=== PATIENT | male | born 1940 | race Caucasian/White ===

== ENCOUNTER 2019-08-28 19:50 | Inpatient (IN) | payer OTHER ==
[~2019-08-28] VITALS: Ht 172.7 cm; Wt 73.9 kg
[2019-08-28] MEDS ORDERED: CHILDREN'S ASPI81 MG PO (20:00)
[2019-08-28] MEDS ORDERED: FORTAMET500 MG PO (20:00)
[2019-08-28] MEDS ORDERED: LOSARTAN-HCTZ1 EAC1 PO (20:00)
[2019-08-28] MEDS ORDERED: TOPROL XL50 M1 PO (20:01)
[2019-08-28] MEDS ORDERED: ATORVASTATIN CA40 MG PO (20:01)
[2019-08-28] MEDS ORDERED: AMILORIDE HCL5 MG PO (20:01)
--- NOTE | 2019-08-28 20:05 | NUR ---
PTE MASCULINO ALERTA Y ORIENTADO EN L[place] HERRERA ESFERAS REFIERE SANGRADO RECTAL ABUNDANTE DESDE EL MIERCOLES.
--- NOTE | 2019-08-28 20:41 | NUR ---
SE ORIENTA AL PACIENTE SOBRE EL TX. SE EXTRAEN MUESTRAS DE ALYCIA BAJO MEDIDAS ASEPTICAS, SE ROTULAN Y ENVIAN AL LABORATORIO. SE CANALIZA Y COLOCA IV. SE ENTREGA FRASCO PARA OCCULT BLOOD ROTULADO Y SE ORIENTA COLECTAR LA MUESTRA.
== END 2019-09-03 11:06 | disposition home or self-care (01) | DRG 379 ==
LOC: ER 19:50 → SURG 21:47 → SEC-K 21:47 → SURG 22:13
PROVIDERS: ADMIT Internal Medicine; ATTEND Internal Medicine
PROC: BW21ZZZ Computerized Tomography (CT Scan) of Abdomen and Pelvis (ICD-10-PCS; principal; 2019-08-29)
PROC: 30233N1 Transfusion of Nonautologous Red Blood Cells into Peripheral Vein, Percutaneous Approach (ICD-10-PCS; 2019-08-30)
PROC: CD171ZZ Planar Nuclear Medicine Imaging of Gastrointestinal Tract using Technetium 99m (Tc-99m) (ICD-10-PCS; 2019-08-31)
PROC: BG44ZZZ Ultrasonography of Thyroid Gland (ICD-10-PCS; 2019-08-31)
PROC: 0T9B70Z Drainage of Bladder with Drainage Device, Via Natural or Artificial Opening (ICD-10-PCS; 2019-08-31)
PROC: 0DJ08ZZ Inspection of Upper Intestinal Tract, Via Natural or Artificial Opening Endoscopic (ICD-10-PCS; 2019-08-31)
PROC: BW21YZZ Computerized Tomography (CT Scan) of Abdomen and Pelvis using Other Contrast (ICD-10-PCS; 2019-09-02)
PROC: 0DJD8ZZ Inspection of Lower Intestinal Tract, Via Natural or Artificial Opening Endoscopic (ICD-10-PCS; 2019-09-02)
DX: K57.33 Diverticulitis of large intestine without perforation or abscess with bleeding (principal); E11.8 Type 2 diabetes mellitus with unspecified complications; E78.5 Hyperlipidemia, unspecified; I11.9 Hypertensive heart disease without heart failure; I25.10 Atherosclerotic heart disease of native coronary artery without angina pectoris; N40.0 Benign prostatic hyperplasia without lower urinary tract symptoms; N32.0 Bladder-neck obstruction; K29.60 Other gastritis without bleeding; K26.9 Duodenal ulcer, unspecified as acute or chronic, without hemorrhage or perforation; D50.0 Iron deficiency anemia secondary to blood loss (chronic); E04.1 Nontoxic single thyroid nodule; Z72.0 Tobacco use